=== PATIENT | female | born 1960 | race Caucasian/White ===

== ENCOUNTER 2017-12-22 21:10 | Inpatient (IN) | payer BC ==
[~2017-12-22] VITALS: Ht 169.4 cm; Wt 88.9 kg
[~2017-12-22 21:10] MED LIST: ALPR1TAB2 PO; DULO60CA7 PO; METO200T2 PO; OMEP20TA62 PO; OXYC-306 PO
[2017-12-22] MEDS ORDERED: ONDANSETRON 2MG/ML, 2ML IVPush ONE (21:30)
[2017-12-22] MEDS ORDERED: SODIUM CHLORIDE FLUSH 10ML SYR IVF ONE (21:30)
[2017-12-22] MEDS ORDERED: SODIUM CHLORIDE 0.9% 1,000ML IVBOLUS ONE (21:30)
[2017-12-22] MEDS ORDERED: ONDANSETRON 2MG/ML, 2ML ONE (21:30)
[2017-12-22] MEDS ORDERED: MORPHINE SULFATE 4 MG/ML, 1ML ONE ×2 (21:31→23:52)
[2017-12-22 22:08] LABS: CULTURE INDICATED? YES; MICROSCOPIC INDICATED
[2017-12-22 22:10] LABS: MEAN CORPUSCULAR HEMOGLOBIN 25.6 pg (27.0-34.8); MEAN CORPUSCULAR HGB CONC 32.6 g/dL (32.4-35.8); MEAN CORPUSCULAR VOLUME 78.6 fL (80-100); MEAN PLATELET VOLUME 8.3 fL (7.4-10.4); PLATELET COUNT 348 x10^3/uL (130-400); RED BLOOD COUNT 4.06 x10^6/uL (3.82-5.3); RED CELL DISTRIBUTION WIDTH 18.8 % (9.6-15.2)
[2017-12-22] MEDS: MORPHINE SULFATE 4 MG/ML, 1ML IVPush PRN (22:13)
[2017-12-22 22:19] LABS: ALANINE AMINOTRANSFERASE 116 U/L (12-78); ALBUMIN 2.9 g/dL (3.4-5.0); ANION GAP 13 mmol/L (5-15); CHLORIDE 96 mmol/L (98-107); CREATININE 0.99 mg/dL (0.55-1.02)
[2017-12-22 22:20] LABS: MD YES
[2017-12-22 22:21] LABS: ALKALINE PHOSPHATASE 102 U/L (45-117); BILIRUBIN,TOTAL 1.4 mg/dL (0.2-1.0); TOTAL PROTEIN 7.4 g/dL (6.4-8.2)
[2017-12-22 22:32] LABS: BANDS%(MANUAL) 3 % (0-7); LYMPH#(MANUAL) 0.11 x10^3/uL (1-3.4); LYMPHS% (MANUAL) 1 % (22-44); SEG#(MANUAL) 10.25 x10^3/uL (1.8-6.8); SEGS% (MANUAL) 94 % (42-75)
[2017-12-22 22:33] LABS: ANISOCYTOSIS 1+; BAND#(MANUAL) 0.33 x10^3/uL; MONOS#(MANUAL) 0.22 x10^3/uL (0.3-2.7); MONOS% (MANUAL) 2 % (2-9); OVALOCYTES 1+; POLYCHROMASIA 1+
[2017-12-22 22:34] LABS: <PLATELET ESTIMATE> ADEQUATE; LARGE PLATELETS 1+
[2017-12-22 22:35] LABS: STOMATOCYTES 1+
[2017-12-22 22:37] LABS: PMNS WITH VACUOLES 1+
[2017-12-22] MEDS ORDERED: KETOROLAC 30 MG/1 ML ONE (23:08)
[2017-12-22] MEDS ORDERED: KETOROLAC 30 MG/1 ML IVPush ONE (23:30)
[2017-12-22] MEDS ORDERED: CEFTRIAXONE PMX 1GM/50ML 50 ML ONE (23:44)
[2017-12-23] MEDS ORDERED: MORPHINE SULFATE 4 MG/ML, 1ML IVPush ONE
[2017-12-23] MEDS: MORPHINE SULFATE 4 MG/ML, 1ML IVPush PRN
[2017-12-23] MEDS ORDERED: GENTAMICIN IV ONE (01:30)
[2017-12-23] MEDS ORDERED: SODIUM CHLORIDE 0.9% IV ONE (01:30)
[2017-12-23] MEDS ORDERED: OMNIPAQUE 350 MG/ML, 100ML BOTTLE ONE (02:09)
[2017-12-23 02:30] VITALS: BP 123/80
[2017-12-23] MEDS ORDERED: ONDANSETRON 2MG/ML, 2ML IVPush PRN ×3 (03:30→14:00)
[2017-12-23] MEDS: morphine SULFATE 10 MG/ML, 1ML IVPush PRN ×6 (03:35→21:39)
[2017-12-23] MEDS ORDERED: ONDANSETRON 2MG/ML, 2ML IVPush ONE (06:00)
[2017-12-23] MEDS ORDERED: PROMETHAZINE 25 MG/ML, 1ML IM PRN (06:00)
[2017-12-23] MEDS ORDERED: morphine SULFATE 10 MG/ML, 1ML IVPush PRN (06:00)
[2017-12-23] MEDS ORDERED: BISACODYL 10 MG SUPP PR PRN (06:00)
[2017-12-23] MEDS ORDERED: CEFTRIAXONE PMX 1GM/50ML 50 ML IV ONE ×2 (06:00)
[2017-12-23] MEDS ORDERED: ENALAPRILAT 1.25 MG/ML, 2ML IVPush PRN (06:00)
[2017-12-23] MEDS ORDERED: POLYETHYLENE GLYCOL 17 GM PACKET PO PRN (06:00)
[2017-12-23] MEDS ORDERED: ACETAMINOPHEN 325 MG TABLET PO PRN (06:00)
[2017-12-23] MEDS ORDERED: hydrALAzine 20 MG/ML, 1ML IVPush PRN (06:00)
[2017-12-23] MEDS: SODIUM CHLORIDE 0.9% 1,000 ML IV SCH ×2 (06:13→13:07)
[2017-12-23 07:17] VITALS: BP 129/82
[2017-12-23 07:24] LABS: HEMOGLOBIN A1C 5.9 % (4.2-6.3)
[2017-12-23 07:41] LABS: FREE T4 (FREE THYROXINE) 1.25 ng/dL (0.76-1.46); THYROID STIMULATING HORMONE 0.437 mIU/L (0.358-3.740)
[2017-12-23] MEDS: OMEPRAZOLE 20 MG CAPSULE.DR PO SCH (11:50)
[2017-12-23] MEDS: SENNA/DOCUSATE TABLET PO SCH (11:50)
[2017-12-23] MEDS: DULOXETINE 30 MG CAPSULE.DR PO SCH (11:50)
[2017-12-23] MEDS: METOPROLOL SUCCINATE 100 MG TAB.ER.24H PO SCH (11:51)
[2017-12-23 12:53] VITALS: BP 141/87
[2017-12-23] MEDS: OXYcodone IR 5MG TABLET PO PRN ×2 (13:45→22:40)
[2017-12-23] MEDS: D5%-LR+KCL 20MEQ 1,000 ML IV SCH ×2 (14:16→21:39)
[2017-12-23] MEDS ORDERED: MORPHINE SULFATE 4 MG/ML, 1ML ONE (17:35)
[2017-12-23 19:40] VITALS: BP 101/65
[2017-12-24 01:01] VITALS: BP 127/79
[2017-12-24] MEDS: CEFTRIAXONE 2 GM in DEXTROSE 5% 50 ML IVPB SCH (01:04)
[2017-12-24 01:30] VITALS: BP 91/51
[2017-12-24] MEDS: D5%-LR+KCL 20MEQ 1,000 ML IV SCH (04:32)
[2017-12-24 04:36] LABS: BASOPHILS % (AUTO) 0 % (0-1); EOSINOPHILS # (AUTO) 0.09 x10^3/uL (0-0.4); EOSINOPHILS % (AUTO) 1 % (1-7); LYMPHOCYTES # (AUTO) 0.69 x10^3/uL (1-3.4); LYMPHOCYTES % (AUTO) 9 % (22-44); MD NO; MEAN CORPUSCULAR HEMOGLOBIN 26.1 pg (27.0-34.8); MEAN CORPUSCULAR HGB CONC 32.7 g/dL (32.4-35.8); MEAN CORPUSCULAR VOLUME 79.8 fL (80-100); MEAN PLATELET VOLUME 8.4 fL (7.4-10.4); MONOCYTES # (AUTO) 0.77 x10^3/uL (0.2-0.8); MONOCYTES % (AUTO) 10 % (2-9); NEUTROPHILS # (AUTO) 5.99 x10^3/uL (1.8-6.8); NEUTROPHILS % (AUTO) 80 % (42-75); PLATELET COUNT 266 x10^3/uL (130-400); RED BLOOD COUNT 3.43 x10^6/uL (3.82-5.3); RED CELL DISTRIBUTION WIDTH 18.4 % (9.6-15.2)
[2017-12-24 04:55] LABS: CHLORIDE 102 mmol/L (98-107)
[2017-12-24 05:02] LABS: ALANINE AMINOTRANSFERASE 48 U/L (12-78); ALKALINE PHOSPHATASE 70 U/L (45-117); ANION GAP 9 mmol/L (5-15); BILIRUBIN,TOTAL 0.3 mg/dL (0.2-1.0); CALCIUM 7.2 mg/dL (8.5-10.1); CHOL/HDL RATIO 12.1; CHOLESTEROL, TOTAL 97 mg/dL (140-239); CREATININE 0.84 mg/dL (0.55-1.02); HDL CHOL % 8 % (28-40); HDL CHOLESTEROL (DIRECT) 8 mg/dL (40-60); LDL CHOLESTEROL,CALCULATED 45 mg/dL (54-169); LDL/HDL RATIO 5.6 (0.5-3.0); TOTAL PROTEIN 5.9 g/dL (6.4-8.2); TRIGLYCERIDES 220 mg/dL (50-200); VLDL CHOLESTEROL 44 mg/dL (0-25)
[2017-12-24] MEDS ORDERED: POTASSIUM CHLORIDE 20 MEQ TAB.ER.PRT PO ONE (06:30)
[2017-12-24] MEDS: morphine SULFATE 10 MG/ML, 1ML IVPush PRN ×3 (06:46→23:56)
[2017-12-24 06:50] VITALS: BP 119/75
[2017-12-24] MEDS: METOPROLOL SUCCINATE 100 MG TAB.ER.24H PO SCH (08:46)
[2017-12-24] MEDS: POTASSIUM CHLORIDE 40 MEQ in D5%-LACTATED RINGERS 1,000 ML IV SCH ×2 (08:46→14:49)
[2017-12-24] MEDS: IRON SUCROSE COMPLEX 100MG/5ML IV SCH (08:46)
[2017-12-24] MEDS: DULOXETINE 30 MG CAPSULE.DR PO SCH (08:46)
[2017-12-24] MEDS: SENNA/DOCUSATE TABLET PO SCH (08:47)
[2017-12-24] MEDS: OMEPRAZOLE 20 MG CAPSULE.DR PO SCH (08:47)
[2017-12-24] MEDS: OXYcodone IR 5MG TABLET PO PRN ×3 (09:35→20:30)
[2017-12-24] MEDS ORDERED: MORPHINE SULFATE 4 MG/ML, 1ML ONE ×2 (10:49→23:53)
[2017-12-24 12:23] VITALS: BP 93/60
[2017-12-24] MEDS ORDERED: MIDAZOLAM 1 MG/ML, 2ML ONE (18:34)
[2017-12-24] MEDS ORDERED: PROPOFOL 10 MG/ML, 20ML ONE (18:34)
[2017-12-24] MEDS ORDERED: FENTANYL PF 100 MCG/2ML ONE (18:34)
[2017-12-24] MEDS ORDERED: ROCURONIUM 10MG/ML,5ML ONE (18:36)
[2017-12-24] MEDS ORDERED: DEXAMETHASONE 4 MG/ML, 1ML ONE (18:48)
[2017-12-24] MEDS ORDERED: ONDANSETRON 2MG/ML, 2ML ONE (18:48)
[2017-12-24] MEDS ORDERED: OXYcodone 5 MG/5 ML ORAL.SOL UDC PO PRN (19:00)
[2017-12-24] MEDS ORDERED: HYDROmorphone 1 MG/ML, 1ML IV PRN (19:00)
[2017-12-24] MEDS ORDERED: MIDAZOLAM 1 MG/ML, 2ML IV PRN (19:00)
[2017-12-24] MEDS ORDERED: hydrALAzine 20 MG/ML, 1ML IV PRN (19:00)
[2017-12-24] MEDS ORDERED: ONDANSETRON 2MG/ML, 2ML IVPush PRN (19:00)
[2017-12-24] MEDS ORDERED: PROMETHAZINE 12.5 MG SUPP PR PRN (19:00)
[2017-12-24] MEDS ORDERED: LABETALOL 5MG/ML, 20ML IV PRN (19:00)
[2017-12-24] MEDS ORDERED: morphine SULFATE 10 MG/ML, 1ML IV PRN (19:00)
[2017-12-24] MEDS ORDERED: FENTANYL PF 100 MCG/2ML IV PRN (19:00)
[2017-12-24] MEDS ORDERED: MEPERIDINE/PF 25MG/0.5ML IVPush PRN (19:00)
[2017-12-24] MEDS ORDERED: EPHEDRINE 50 MG/ML, 1ML ONE (19:16)
[2017-12-24 20:14] VITALS: BP 110/73
[2017-12-25] MEDS: OXYcodone IR 5MG TABLET PO PRN ×5 (00:28→21:17)
[2017-12-25] MEDS: CEFTRIAXONE 2 GM in DEXTROSE 5% 50 ML IVPB SCH (00:29)
[2017-12-25 01:09] VITALS: BP 134/80
[2017-12-25] MEDS: POTASSIUM CHLORIDE 40 MEQ in D5%-LACTATED RINGERS 1,000 ML IV SCH ×2 (03:15→13:42)
[2017-12-25 06:54] VITALS: BP 115/77
[2017-12-25] MEDS: METOPROLOL SUCCINATE 100 MG TAB.ER.24H PO SCH (08:47)
[2017-12-25] MEDS: DULOXETINE 30 MG CAPSULE.DR PO SCH (08:48)
[2017-12-25] MEDS: OMEPRAZOLE 20 MG CAPSULE.DR PO SCH (08:49)
[2017-12-25] MEDS: SENNA/DOCUSATE TABLET PO SCH (08:49)
[2017-12-25] MEDS: IRON SUCROSE COMPLEX 100MG/5ML IV SCH (08:50)
[2017-12-25] MEDS: morphine SULFATE 10 MG/ML, 1ML IVPush PRN ×3 (12:15→23:06)
[2017-12-25 13:16] VITALS: BP 106/71
[2017-12-25] MEDS ORDERED: OPIUM/BELLADONNA SUPP.RECT 16.2-30 MG PR SCH (15:30)
[2017-12-25] MEDS: PHENAZOPYRIDINE 200 MG TABLET PO PRN ×2 (16:33→23:06)
[2017-12-25] MEDS ORDERED: CIPR500T3 PO (17:28)
[2017-12-25] MEDS ORDERED: PHEN-583 PO (17:28)
[2017-12-25 19:20] VITALS: BP 126/80
[2017-12-25] MEDS ORDERED: MORPHINE SULFATE 4 MG/ML, 1ML ONE (23:04)
[2017-12-26] MEDS: CEFTRIAXONE 2 GM in DEXTROSE 5% 50 ML IVPB SCH (01:02)
[2017-12-26] MEDS: OXYcodone IR 5MG TABLET PO PRN ×3 (01:02→09:47)
[2017-12-26 01:22] VITALS: BP 119/76
[2017-12-26] MEDS: morphine SULFATE 10 MG/ML, 1ML IVPush PRN (04:22)
[2017-12-26 04:35] LABS: BASOPHILS # (AUTO) 0.02 x10^3/uL (0-0.1); BASOPHILS % (AUTO) 0 % (0-1); EOSINOPHILS # (AUTO) 0.07 x10^3/uL (0-0.4); EOSINOPHILS % (AUTO) 1 % (1-7); LYMPHOCYTES % (AUTO) 11 % (22-44); MD NO; MEAN CORPUSCULAR HEMOGLOBIN 25.7 pg (27.0-34.8); MEAN CORPUSCULAR HGB CONC 32.4 g/dL (32.4-35.8); MEAN CORPUSCULAR VOLUME 79.2 fL (80-100); MEAN PLATELET VOLUME 8.8 fL (7.4-10.4); MONOCYTES # (AUTO) 1.19 x10^3/uL (0.2-0.8); MONOCYTES % (AUTO) 12 % (2-9); NEUTROPHILS # (AUTO) 7.67 x10^3/uL (1.8-6.8); NEUTROPHILS % (AUTO) 76 % (42-75); PLATELET COUNT 352 x10^3/uL (130-400); RED BLOOD COUNT 3.75 x10^6/uL (3.82-5.3)
[2017-12-26 04:38] LABS: ANION GAP 6 mmol/L (5-15); CALCIUM 8.3 mg/dL (8.5-10.1); CHLORIDE 103 mmol/L (98-107); CREATININE 0.91 mg/dL (0.55-1.02)
[2017-12-26] MEDS ORDERED: SENN1TAB7 PO (06:15)
[2017-12-26] MEDS ORDERED: FERR324T5 PO (06:15)
[2017-12-26] MEDS ORDERED: ASCO500T8 PO (06:15)
[2017-12-26 07:28] VITALS: BP 110/73
[2017-12-26] MEDS: PHENAZOPYRIDINE 200 MG TABLET PO PRN (08:04)
[2017-12-26] MEDS: OMEPRAZOLE 20 MG CAPSULE.DR PO SCH (09:46)
[2017-12-26] MEDS: METOPROLOL SUCCINATE 100 MG TAB.ER.24H PO SCH (09:46)
[2017-12-26] MEDS: SENNA/DOCUSATE TABLET PO SCH (09:47)
[2017-12-26] MEDS: DULOXETINE 30 MG CAPSULE.DR PO SCH (09:47)
[2017-12-26] MEDS: IRON SUCROSE COMPLEX 100MG/5ML IV SCH (09:47)
== END 2017-12-26 11:53 | disposition home or self-care (01) | DRG 872 ==
LOC: ED 23:01 → EDIP 12-23 01:32 → 3NW 12-23 02:15 → DCLOUNGE 12-26 11:39
PROVIDERS: ADMIT Internal Medicine; ATTEND Internal Medicine
PROC: 0T9B70Z Drainage of Bladder with Drainage Device, Via Natural or Artificial Opening (ICD-10-PCS; 2017-12-22)
PROC: 0T768DZ Dilation of Right Ureter with Intraluminal Device, Via Natural or Artificial Opening Endoscopic (ICD-10-PCS; principal; 2017-12-24 18:15)
DX: A41.9 Sepsis, unspecified organism (principal); E44.0 Moderate protein-calorie malnutrition; E87.1 Hypo-osmolality and hyponatremia; N13.6 Pyonephrosis; D50.9 Iron deficiency anemia, unspecified; E66.9 Obesity, unspecified; F32.9 Major depressive disorder, single episode, unspecified; F41.1 Generalized anxiety disorder; G89.29 Other chronic pain; I10 Essential (primary) hypertension; Z80.1 Family history of malignant neoplasm of trachea, bronchus and lung; Z80.7 Family history of other malignant neoplasms of lymphoid, hematopoietic and related tissues; Z87.440 Personal history of urinary (tract) infections; Z90.49 Acquired absence of other specified parts of digestive tract; Z98.51 Tubal ligation status; Z88.5 Allergy status to narcotic agent; Z88.8 Allergy status to other drugs, medicaments and biological substances
CPT/HCPCS: 36415; 74018; 74177; 76000; 76700; 76770; 80048; 80053; 80061; 81001; 82306; 82607; 82728; 83036; 83540; 83550; 83690; 83735; 84439; 84443; 84466; 85025; 87040; 87077; 87086; 87186; 93005; 96361; 96374; 96375; 96376; J0696; J1100; J1756; J1885; J2250; J2405; J2550; J2704; J3010; J3480; Q9967; C1758; C1769; C2617; J1580; J2270; J7030; J7121